=== PATIENT | male | born 1950 | race Caucasian/White ===

== ENCOUNTER 2020-10-07 20:00 | Emergency (ER) | payer MEDICARE ==
[~2020-10-07] VITALS: Ht 175.3 cm; Wt 73.9 kg
== END 2020-10-07 21:00 | disposition home or self-care (01) ==
LOC: ER 20:38
DX: B02.8 Zoster with other complications (principal); B02.29 Other postherpetic nervous system involvement; F17.210 Nicotine dependence, cigarettes, uncomplicated
CPT/HCPCS: 99282